=== PATIENT | female | born 1945 | race Caucasian/White ===

== ENCOUNTER 2020-02-14 15:18 | Inpatient (IN) | payer OTHER, MEDICAID, SELFPAY ==
[~2020-02-14] VITALS: Ht 152.4 cm; Wt 58.1 kg
[~2020-02-14 15:18] MED LIST: PHEN60TA43; VALS40TA3; [UNRECOGNIZED DRUG - CODE]
[2020-02-14 15:19] VITALS: BP 121/74
--- NOTE | 2020-02-14 15:19 | NUR ---
Pt biba and placed in bed 3.
[2020-02-14] MEDS ORDERED: CALC-1015 PO (15:39)
[2020-02-14] MEDS ORDERED: LOSA25TA32 PO (15:39)
[2020-02-14] MEDS ORDERED: [UNRECOGNIZED DRUG - CODE] PO (15:39)
[2020-02-14] MEDS ORDERED: LORA10TA19 PO (15:39)
[2020-02-14] MEDS ORDERED: ACET-2619 PO (15:39)
[2020-02-14] MEDS ORDERED: MOME0.051 NS (15:39)
[2020-02-14] MEDS ORDERED: MULT-2247 PO (15:39)
[2020-02-14] MEDS ORDERED: OMEP20EC11 PO (15:39)
[2020-02-14] MEDS ORDERED: LEVE750T25 PO (15:39)
[2020-02-14] MEDS ORDERED: ORE25 PO (15:39)
[2020-02-14] MEDS ORDERED: WHEA1POW PO (15:39)
[2020-02-14] MEDS ORDERED: PB97.2 PO (15:39)
--- NOTE | 2020-02-14 15:40 | NUR ---
74 YEAR OLD FEMALE BIBA FROM [facility] FOR ALTERED LOC. PER EMS PT IS MORE ALTERED THAN NORMAL BECAUSE SHE NORMALLY LOOKS AROUND AT PEOPLE BUT NOT ANYMORE. EMS DOES NOT KNOW LAST TIME SHE WAS NORMAL. PER EMS PT BASELINE NONVERBAL. GCS 7 ([id number]), AOX0 (NONVERBAL). PT BREATHING EVEN AND UNLABORED ON 3L NC, RR 18, SPO2 98%, SKIN WARM AND DRY. ERMD AT BEDSIDE. PT PLACED ON MONITOR, VS STABLE. PMH - SEIZURE, HTN ALLERGIES - NKA
[2020-02-14] MEDS ORDERED: IMO2 PO (15:42)
[2020-02-14] MEDS ORDERED: PROM6.2555 PO (15:42)
[2020-02-14] MEDS ORDERED: ALBU0.0912 IH (15:42)
[2020-02-14] MEDS ORDERED: ONDA4TAB PO (15:42)
[2020-02-14] MEDS ORDERED: MAGN400S60 PO (15:42)
[2020-02-14 15:59] LABS: BASOPHILS % (AUTO) 0.3 % (0.0-2.0); HEMOGLOBIN 14.2 g/dL (12.0-16.0); LYMPHOCYTES # (AUTO) 2.1 K/uL (2.5-16.5); LYMPHOCYTES % (AUTO) 18.8 % (20.5-51.1); MEAN CORPUSCULAR HEMOGLOBIN 32 pg (27-31); MEAN CORPUSCULAR HGB CONC 33 g/dL (33-37); MEAN CORPUSCULAR VOLUME 96.1 fL (80-94); MONOCYTES # (AUTO) 1.1 K/uL (0.8-1.0); NEUTROPHILS % (AUTO) 70.9 % (42.2-75.2); PLATELET COUNT (AUTO) 311 K/uL (140-450); RED BLOOD CELL COUNT(AUTO) 4.48 MIL/uL (4.20-5.40); RED CELL DISTRIBUTION WIDTH 13.3 % (11.6-13.7); WHITE BLOOD COUNT (AUTO) 11.2 K/uL (4.8-10.8)
--- NOTE | 2020-02-14 15:59 | NUR ---
PT TAKEN TO CT
--- NOTE | 2020-02-14 16:14 | NUR ---
PT RETURN FROM CT
[2020-02-14 16:20] LABS: ALBUMIN 3.1 g/dL (3.4-5.0); ANION GAP 11.2 (8-16); ASPARTATE AMINOTRANSFERASE 11 U/L (15-37); CARBON DIOXIDE 33.1 mmol/L (21-32); CHLORIDE 97 mmol/L (98-107); CREATININE 0.8 mg/dL (0.6-1.3); GLUCOSE 142 mg/dL (74-106); POTASSIUM 3.3 mmol/L (3.5-5.1); SODIUM SERUM 138 mmol/L (136-145); TOTAL BILIRUBIN 0.3 mg/dL (0.0-1.0); UREA NITROGEN, BLOOD 15 mg/dL (7-18)
[2020-02-14 16:37] LABS: BILIRUBIN,URINE NEGATIVE (NEGATIVE); BLOOD, URINE NEGATIVE (NEGATIVE); COLOR,URINE YELLOW (YELLOW); LEUKOCYTE ESTERASE ,URINE NEGATIVE (NEGATIVE); NITRITE, URINE NEGATIVE (NEGATIVE); PH,URINE 6.5 (5.0-9.0); UGLUCOSE NEGATIVE (NEGATIVE)
[2020-02-14] MEDS ORDERED: cefTRIAXone 1,000 MG VIAL ONE (16:39)
[2020-02-14 17:09] LABS: APPEARANCE,URINE CLEAR (CLEAR)
--- NOTE | 2020-02-14 17:40 | NUR ---
IV INFILTRATED, ATTEMPTING TO PLACE ANOTHER IV 2 TIMES. UNABLE TO ANOTHER RN WILL TRY
--- NOTE | 2020-02-14 17:41 | NUR ---
COVID, FLU, AND RSV SWAB SENT TO LAB. PT ALERT AND AWAKE, BREATHING EVEN AND UNLABORED.
[2020-02-14 17:45] LABS: C-REACTIVE PROTEIN QUANT 2.2 mg/dL (0.0-0.9)
[2020-02-14 17:57] LABS: LACTATE DEHYDROGENASE 137 U/L (81-234)
[2020-02-14 18:21] LABS: RSV NEGATIVE (NEGATIVE)
[2020-02-14 18:37] LABS: PROTHROMBIN TIME 9.8 secs (10.8-13.4)
--- NOTE | 2020-02-14 18:42 | NUR ---
GIVEN UPDATE TO MOLDED CANDLES WICKER JULIANN, STATES SHE DOES NOT KNOW CODE STATUS OF PT OR HAVE POLST, WILL GET BACK TO US AFTER TALKING TO BOSS.
[2020-02-14 19:30] VITALS: BP 101/60
--- NOTE | 2020-02-14 19:30 | NUR ---
ADMITTED 74, FEMALE, VIA GURNEY FROM E.R. TRANSFERRED SAFELY TO BED. NON VERBAL. NO SOB. IV SITE AT 22G. V/S TAKEN, MRSA SWAB DONE, DROPLET PRECAUTION IN PLACE. SEIZURE PRECAUTION IN PLACE. FALL RISK PROTOCOL IN PLACE. PLAN OF CARE DISCUSSED. CALL LIGHT WITHIN REACH.
--- NOTE | 2020-02-14 19:30 | NUR ---
Patient will be admitted to care of Dr Bueno. Admited to Tele. Will go to room 127A. Belongings list completed. Report to Ezequiel KEVIN.
--- NOTE | 2020-02-14 19:39 | NUR ---
REPORTED LACTIC ACID OF 2.[address] CUNHA. NO NEW ORDER.
--- NOTE | 2020-02-14 20:00 | NUR ---
PATIENT CARE DONE, KEPT CLEAN, DRY AND COMFORTABLE. Addendum: 02/15/20 at 0735 by Ezequiel Booker RN PATIENT REFUSED TO OPEN HER EYES WHEN I TRIED TO ASSESS AND TRIED TO FLUSH A PENLIGHT. TRIED 3X BUT PATIENT STILL DON'T OPEN EYES.
[2020-02-14] MEDS ORDERED: HYDROcodone/APAP 7.5/325 MG 1 TAB PO PRN (20:20)
[2020-02-14] MEDS ORDERED: ACETAMINOPHEN 325 MG TAB PO PRN (20:20)
[2020-02-14] MEDS ORDERED: ONDANSETRON 4 MG/2 ML VIAL IM/IVP PRN (20:20)
[2020-02-14] MEDS ORDERED: DOCUSATE SODIUM 100 MG GELCAP PO PRN (20:20)
[2020-02-14] MEDS ORDERED: ALBUTEROL HFA MDI 90 MCG/ACTUATION 8 GM INH PRN (20:25)
[2020-02-14 20:43] LABS: CHOL/HDL RATIO 2.8 (1-4.5); FREE T4 (FREE THYROXINE) 1.11 ng/dL (0.76-1.46); MAGNESIUM 1.7 mg/dL (1.8-2.4); PHOSPHORUS 3.7 mg/dL (2.5-4.9); THYROID STIMULATING HORMONE 0.42 uIU/mL (0.34-3.74)
--- NOTE | 2020-02-14 21:53 | NUR ---
HEPARIN 5000 UNITS SQ GIVEN ORDERED. TOLERATED WELL. NO A/R NOTED.
[2020-02-14] MEDS: NACL 0.9% 1,000 ML IV SCH (21:54)
--- NOTE | 2020-02-14 22:00 | NUR ---
OBTAINED SOME PATIENT INFO FROM NEEMA PASTRANA, FROM [facility].
[2020-02-14 22:11] LABS: BARBITURATE, URINE POSITIVE ng/ml (NEG <=200); BENZODIAZEPINE, URINE NEGATIVE ng/mL (NEG <=200); CANNABINOID, URINE NEGATIVE ng/mL (NEG <=50); COCAINE, URINE NEGATIVE ng/mL (NEG <=300); OPIATE, URINE NEGATIVE ng/mL (NEG <=2000); PHENCYCLIDINE SCREEN,URINE NEGATIVE ng/mL (NEG <=25)
[2020-02-15] VITALS: BP 91/50
--- NOTE | 2020-02-15 | NUR ---
V/S TAKEN AND RECORDED.
--- NOTE | 2020-02-15 02:00 | NUR ---
PATIENT IS SLEEPING. RESPIRATION EVEN AND UNLABORED. CON'T ON 2L NC O2, SATURATION WNL.
[2020-02-15 04:00] VITALS: BP 95/49
--- NOTE | 2020-02-15 04:15 | NUR ---
CHECKED PATIENT, V/S TAKEN, REPOSITIONED, KEPT WARM AND COMFORTABLE.
[2020-02-15 06:11] LABS: BASOPHILS % (AUTO) 0.3 % (0.0-2.0); EOSINOPHILS # (AUTO) 0.1 K/uL (0-0.4); EOSINOPHILS % (AUTO) 0.9 % (0.0-4.0); HEMATOCRIT 36.4 % (36-48); HEMOGLOBIN 12.2 g/dL (12.0-16.0); LYMPHOCYTES # (AUTO) 3.2 K/uL (2.5-16.5); LYMPHOCYTES % (AUTO) 34.6 % (20.5-51.1); MEAN CORPUSCULAR HEMOGLOBIN 33 pg (27-31); MEAN CORPUSCULAR HGB CONC 34 g/dL (33-37); MONOCYTES % (AUTO) 10.5 % (1.7-9.3); NEUTROPHILS % (AUTO) 53.7 % (42.2-75.2); PLATELET COUNT (AUTO) 260 K/uL (140-450); RED BLOOD CELL COUNT(AUTO) 3.75 MIL/uL (4.20-5.40); RED CELL DISTRIBUTION WIDTH 13.4 % (11.6-13.7); WHITE BLOOD COUNT (AUTO) 9.2 K/uL (4.8-10.8)
[2020-02-15] MEDS: NACL 0.9% 1,000 ML IV SCH ×2 (06:17→09:57)
--- NOTE | 2020-02-15 06:20 | NUR ---
CHECKED PATIENT, AROUSABLE TO VERBAL, ELEVATED HOB. OFFERED A WATER TO DRINK BUT PATIENT DON'T WANT TO OPEN HER MOUTH.
--- NOTE | 2020-02-15 07:08 | NUR ---
PATIENT IS IN STABLE CONDITION. NO SOB. ENDORSED TO DORITA LAL FOR CONTINUITY OF CARE.
--- NOTE | 2020-02-15 07:09 | NUR ---
RECEIVED REPORT FROM SCHOOL CLERK NURSE. PATIENT LYING DOWN IN BED SLEEPING, AROUSABLE BY VOICE. NO DISTRESS NOTED. FLACC 0. RESPIRATIONS EVEN, UNLABORED, ON O2 2L/MIN VIA NC. SKIN COLOR APPROPRIATE TO ETHNICITY, WARM TO TOUCH. SKIN INTACT. IV SITE INTACT, PATENT, AND INFUSING IVF PER MD ORDERS. REVIEWED PLAN OF CARE WITH PATIENT. UNABLE TO COMPREHEND D/T INTELLECTUAL DISABILITY. SAFETY MEASURES IN PLACE, CALL LIGHT WITHIN REACH. WILL CONTINUE TO MONITOR.
[2020-02-15 07:12] LABS: CARBON DIOXIDE 31.9 mmol/L (21-32); CHLORIDE 100 mmol/L (98-107); CREATININE 0.7 mg/dL (0.6-1.3); GLUCOSE 110 mg/dL (74-106); SODIUM SERUM 136 mmol/L (136-145); UREA NITROGEN, BLOOD 16 mg/dL (7-18)
[2020-02-15 07:50] LABS: ANION GAP 7.1 (8-16)
[2020-02-15 08:00] VITALS: BP 118/68
[2020-02-15] MEDS ORDERED: POTASSIUM CHLORIDE 40 MEQ, LIDOCAINE MPF 1% 25 MG in NACL 0.9% 250 ML IV SCH (08:30)
[2020-02-15] MEDS ORDERED: DEXAMETHASONE 4 MG TAB PO SCH (09:00)
--- NOTE | 2020-02-15 09:03 | NUR ---
PATIENT HAS BEEN SCREENED AND CATEGORIZED MODERATE NUTRITION RISK. PATIENT WILL BE SEEN WITHIN 3-5 DAYS OF ADMISSION. 02/17/20 02/19/[address]
[2020-02-15] MEDS: ASCORBIC ACID 500 MG TAB PO SCH (09:55)
[2020-02-15] MEDS: ZINC SULF 220 MG CAP PO SCH (09:55)
[2020-02-15] MEDS: AZITHROMYCIN 250 MG TAB PO SCH (09:55)
--- NOTE | 2020-02-15 10:13 | NUR ---
SCHEDULED MEDICATIONS DUE GIVEN. WILL CONTINUE TO MONITOR.
--- NOTE | 2020-02-15 10:39 | NUR ---
ASSOCIATE ACCOUNTANT NOTE: Patient's Orientation Unable To Assess Information Provided By NEEMA PASTRANA - [facility] [place] Comments SW WAS UNABLE TO MEET PATIENT AT BEDSIDE. SW CONTACTED PATIENT'S EMERGENCY CONTACT NEEMA PASTRANA. Skein Yarn Dyer, Realtionship and Phone Number NEEMA PASTRANA [facility] [place] [phone] HARSHA REESE SISTER [phone] Healthcare Power of Health Psychologist No Does Patient Have a POLST No Identifying Problems No Social Work Triggers Explanation Of Identifying Problems PATIENT IS A 74-YEAR-OLD FEMALE ADMITTED FOR COVID R/O, PNA, AND SEPSIS. PATIENT HAS PMHX OF SEIZURE DISORDER AND HYPERTENSION. PATIENT'S [facility] STATION OPERATOR IS TIFF MARTINES [phone]. PATIENT IS NOT CONSERVED BUT PATEINT'S SISTER IS INVOLVED IN HER CARE, HARSHA REESE [phone]. PATIENT WAS ADMITTED FROM [facility]. Admitted From Residential Care Pre-Admission Level Of Functioning Status Total Care Prior DME Wheelchair Living Situation Asst'd Living/Board &Care Other Living Situation/Comment [facility] Patient Had Caregiver No Home Support No Caregiver Issues Financial Issues No Known Financial Issue Referral To The Financial Counselor Needed No Factors/Needs No D/C Needs Identified Explanation And Or Other Factors Affecting/Possible DC Needs FACILITY WILL NEED 1 NEGATIVE COVID TEST PRIOR TO DISCHARGE. Pt/Rep Participated In Discharge Plan Yes Patient/Family Agress With Discharge Plan Yes Discharge Plan Comments TENTATIVE DISCHARGE PLAN IS FOR PATIENT TO RETURN TO [facility]. DC Plan Status Initiated
[2020-02-15 12:00] VITALS: BP 110/70
[2020-02-15] MEDS ORDERED: MAG SULF 2000 MG/WATER PREMIX 50 ML IV SCH (13:00)
--- NOTE | 2020-02-15 13:41 | NUR ---
ASSISTED POST PRODUCTION ASSISTANT IN CLEANING AND REPOSITIONING PATIENT. SCHEDULED MEDICATIONS DUE GIVEN. WILL CONTINUE TO MONITOR.
--- NOTE | 2020-02-15 14:00 | NUR ---
PATIENT PULLED OUT IV LINE. NEW IV LINE INSERTED ON FIRST ATTEMPT. PATIENT TOLERATED PROCEDURE WELL. WILL CONTINUE TO MONITOR.
[2020-02-15 16:00] VITALS: BP 134/81
--- NOTE | 2020-02-15 17:40 | NUR ---
PATIENT SITTING IN BED, NO DISTRESS NOTED. CONDITION UNCHANGED. WILL CONTINUE TO MONITOR.
--- NOTE | 2020-02-15 19:04 | NUR ---
GAVE REPORT TO LINING STITCHER NURSE FOR CONTINUITY OF CARE. PATIENT IN STABLE CONDITION.
--- NOTE | 2020-02-15 19:05 | NUR ---
RECEIVED BEDSIDE ENDORSEMENT FROM DORITA LAL. PATIENT IS LYING IN BED, NO SOB. NOT IN DISTRESS, ON ROOM AIR WITH SATURATION OF 93%. IV SITE AT LFA 24G, INTACT AND PATENT INFUSING NS 100 CC/HR. STILL PENDING COVID TEST RESULT. DROPLET PRECAUTION OBSERVED. FALL RISK PROTOCOL OBSERVED, SEIZURE PROTECTION IN PLACE. PLAN OF CARE DISCUSSED. CALL LIGHT WITHIN REACH.
[2020-02-15 20:00] VITALS: BP 135/72
--- NOTE | 2020-02-15 20:44 | NUR ---
PATIENT IS AWAKE. ADMINISTERED HEPARIN 5000 UNITS SQ TO ABDOMINAL AREA, TOLERATED WELL. KEPT COMFORTABLE.
--- NOTE | 2020-02-15 22:12 | NUR ---
CLEANED PATIENT'S [place] AREA, BM NOTED, SOFT. MARYLOU BROWNING HELPED ME CLEANED AND REPOSITIONED PATIENT. NO SOB. CALL LIGHT WITHIN REACH. FALL RISK PROTOCOL IN PLACE.
[2020-02-16] VITALS: BP 136/72
--- NOTE | 2020-02-16 | NUR ---
V/S TAKEN. NO SOB.
--- NOTE | 2020-02-16 02:00 | NUR ---
PATIENT IS SLEEPING, RESPIRATION EVEN AND UNLABORED.
[2020-02-16] MEDS: NACL 0.9% 1,000 ML IV SCH ×3 (02:17→22:17)
--- NOTE | 2020-02-16 03:06 | NUR ---
HANGED A NEW BAG OF NS 1L AT 100 CC/HR. IV SITE INTACT AND PATENT.
[2020-02-16 04:00] VITALS: BP 139/72
--- NOTE | 2020-02-16 05:00 | NUR ---
PATIENT IS SLEEPING. NO SOB.
[2020-02-16 06:26] LABS: BASOPHILS % (AUTO) 0.5 % (0.0-2.0); EOSINOPHILS % (AUTO) 0.3 % (0.0-4.0); HEMATOCRIT 36.8 % (36-48); HEMOGLOBIN 12.4 g/dL (12.0-16.0); LYMPHOCYTES # (AUTO) 1.8 K/uL (2.5-16.5); LYMPHOCYTES % (AUTO) 24.3 % (20.5-51.1); MEAN CORPUSCULAR HEMOGLOBIN 33 pg (27-31); MEAN CORPUSCULAR HGB CONC 34 g/dL (33-37); MEAN CORPUSCULAR VOLUME 96.8 fL (80-94); MONOCYTES # (AUTO) 0.6 K/uL (0.8-1.0); MONOCYTES % (AUTO) 8.1 % (1.7-9.3); NEUTROPHILS # (AUTO) 4.9 K/uL (1.8-7.7); NEUTROPHILS % (AUTO) 66.8 % (42.2-75.2); PLATELET COUNT (AUTO) 271 K/uL (140-450); RED CELL DISTRIBUTION WIDTH 13.2 % (11.6-13.7); WHITE BLOOD COUNT (AUTO) 7.4 K/uL (4.8-10.8)
[2020-02-16 06:30] LABS: ANION GAP 11.7 (8-16); CARBON DIOXIDE 28.7 mmol/L (21-32); CHLORIDE 103 mmol/L (98-107); CREATININE 0.6 mg/dL (0.6-1.3); GLUCOSE 126 mg/dL (74-106); POTASSIUM 3.4 mmol/L (3.5-5.1); SODIUM SERUM 140 mmol/L (136-145); UREA NITROGEN, BLOOD 12 mg/dL (7-18)
--- NOTE | 2020-02-16 07:13 | NUR ---
PATIENT IS IN STABLE CONDITION. BEDSIDE ENDORSEMENT GIVEN TO DORITA MICHELLE FOR CONTINUITY OF CARE.
--- NOTE | 2020-02-16 07:14 | NUR ---
REPORT GIVEN BY NIGHT NURSE. PATIENT AWAKE, NON VERBAL. NO S/S OF DISTRESS NOTED. LEFT FOREARM INTACTA ND PATENT. BED IN LOW POSITION. BED ALARM ON. SAFETY MEASURES IN PLACE. PLANS OF CARE DISCUSSED. PATIENT ON ROOM AIR. CALL LIGHT WITHIN REACH.
[2020-02-16 08:00] VITALS: BP 139/68
[2020-02-16] MEDS: POTASSIUM CHLORIDE 10 MEQ TABER PO PRN (08:20)
[2020-02-16] MEDS: ASCORBIC ACID 500 MG TAB PO SCH (08:21)
[2020-02-16] MEDS: ZINC SULF 220 MG CAP PO SCH (08:21)
[2020-02-16] MEDS: AZITHROMYCIN 250 MG TAB PO SCH (08:22)
--- NOTE | 2020-02-16 09:00 | NUR ---
PATIENT IS AWAKE, NONVERBAL. RESPIRATIONS EVEN AND UNLABORED. PATIENT ON ROOM AIR, O2 SAT 94%. PATIENT REFUSED BREAKFAST.
[2020-02-16] MEDS ORDERED: MAG SULF 2000 MG/WATER PREMIX 50 ML IV SCH (09:30)
[2020-02-16 12:00] VITALS: BP 138/81
--- NOTE | 2020-02-16 13:00 | NUR ---
ENCOURAGED PATIENT TO EAT LUNCH. PATIENT REFUSED.
--- NOTE | 2020-02-16 13:03 | NUR ---
DC PL[age] YRS OLD FEMALE PATIENT WAS ADMITTED FROM [facility] WITH A DX OF R/O COVID, PNA SEPSIS AND HYPOXIA. PT HAS A HX OF SEIZURE AND HTN NON-VERBAL AT BASELINE. CXR SHOWED PNEUMONIA, CT HEAD NO ACUTE CHANGES. COVID TEST PENDING . STARTED ON COVID PROTOCOL , IVF AND IV ABX WITH ROCEPHIN . CONSULTED WITH DELANO DC PLAN TO GO BACK TO [facility]. CM TO FOLLOW Addendum: 02/19/20 at 1330 by Rashida Burnette DC PLANNING COVID TEST NEGATIVE , COMPLETED THE COURSE OF ANTIBIOTICS STABLE FOR DISCHARGE. CALLED THE FACILITY AND [facility] [phone] PER TIFF SHE HAS TO SEND THE NURSE TO THE [facility] HOME TO [place] FOR THE QUARANTINE AND WILL CALL BACK CM TO FOLLOW Addendum: 02/19/20 at 1612 by Pal Suarez NELSON CONTACTED [facility] [phone] WHO STATED THAT HER NURSE IS STILL REVIEWING CLINICALS. NELSON PROVIDED NURSING STATION'S PHONE NUMBER [phone] TO [facility]. Addendum: 02/19/20 at 1622 by Rashida Burnette CM DC PLANNING: RECEIVED A CALL FROM [facility] STATED THEY REVIEWED THE CLINICALS AND ACCEPTED PATIENT, WILL SEND THE TRANSPORTER TO [employer] PATIENT. NOTIFIED PRINCESS KEVIN . Addendum: 02/19/20 at 1657 by Sharon Graham CM RECEIVED A CALL FROM [facility] [phone] SHE REQUESTED TO BE E-MAILED LAST THREE DAYS OF NURSES NOTES AT NIGHT TIME. E-MAILED TO [email or web address] FOLLOWE UP SHE RECEIVED THEM AND WILL FOLLOW UP WITH THE FLOOR
[2020-02-16 15:07] LABS: T4 (THYROXINE) 6.8 ug/dL (4.5-12.0)
[2020-02-16 16:00] VITALS: BP 121/76
--- NOTE | 2020-02-16 16:00 | NUR ---
PT REMAINS STABLE. PATIENT AWAKE, NONVERBAL. NO DISTRESS NOTED. FALL PREVENTION MEASURES IN PLACE.
--- NOTE | 2020-02-16 19:05 | NUR ---
REPORT GIVEN TO NIGHT NURSE FOR CONTINUITY OF CARE. PT IN STABLE CONDITION.
--- NOTE | 2020-02-16 19:08 | NUR ---
RECEIVED PATIENT IN STABLE CONDITION FROM AM SHIFT NURSE FOR CONTINUITY OF CARE. TELE PATIENT. RESPIRATIONS EVEN, UNLABORED. SKIN WARM, DRY. IV SITE NOTED TO LEFT FOREARM 24G PATENT/INTACT, INFUSING FLUIDS WELL. FLACC 0. NO S/S ACUTE DISTRESS. CALL LIGHT WITHIN REACH. SAFETY PRECAUTIONS IN PLACE. ISOLATION PRECAUTIONS OBSERVED BY ALL STAFF.
[2020-02-16 20:00] VITALS: BP 150/73
--- NOTE | 2020-02-16 21:40 | NUR ---
PATIENT AWAKE AND IN STABLE CONDITION. DUE MEDS GIVEN. NO S/S ACUTE DISTRESS. FLACC 0. CALL LIGHT WITHIN REACH.
--- NOTE | 2020-02-16 23:00 | NUR ---
PATIENT IS AWAKE AND IN STABLE CONDITION. FLACC 0. NO S/S ACUTE DISTRESS. CALL LIGHT WITHIN REACH. SAFETY PRECAUTIONS IN PLACE. ISOLATION PRECAUTIONS OBSERVED BY ALL STAFF.
[2020-02-17] VITALS: BP 111/65
--- NOTE | 2020-02-17 01:24 | NUR ---
MADE ROUNDS. PATIENT IS ASLEEP AND IN STABLE CONDITION. NO S/S ACUTE DISTRESS. CALL LIGHT WITHIN REACH. SAFETY PRECAUTIONS IN PLACE. ISOLATION PRECAUTIONS OBSERVED BY ALL STAFF.
--- NOTE | 2020-02-17 03:00 | NUR ---
PATIENT CONTINUES IN STABLE CONDITION. FLACC 0. NO S/S ACUTE DISTRESS. CALL LIGHT WITHIN REACH. SAFETY PRECAUTIONS IN PLACE. ISOLATION PRECAUTIONS OBSERVED BY ALL STAFF.
[2020-02-17 04:00] VITALS: BP 146/75
--- NOTE | 2020-02-17 05:39 | NUR ---
INCONTINENT CARE RENDERED WITH IC DESIGN ENGINEER AT BEDSIDE. FLACC 0. NO S/S ACUTE DISTRESS. CALL LIGHT WITHIN REACH. SAFETY PRECAUTIONS IN PLACE. ISOLATION PRECAUTIONS OBSERVED BY ALL STAFF.
[2020-02-17 06:15] LABS: BASOPHILS % (AUTO) 0.3 % (0.0-2.0); HEMATOCRIT 37.7 % (36-48); HEMOGLOBIN 12.7 g/dL (12.0-16.0); LYMPHOCYTES # (AUTO) 1.4 K/uL (2.5-16.5); LYMPHOCYTES % (AUTO) 13.1 % (20.5-51.1); MEAN CORPUSCULAR HEMOGLOBIN 32 pg (27-31); MEAN CORPUSCULAR HGB CONC 34 g/dL (33-37); MEAN CORPUSCULAR VOLUME 95.2 fL (80-94); MONOCYTES # (AUTO) 0.9 K/uL (0.8-1.0); NEUTROPHILS # (AUTO) 8.7 K/uL (1.8-7.7); NEUTROPHILS % (AUTO) 78.6 % (42.2-75.2); PLATELET COUNT (AUTO) 321 K/uL (140-450); RED BLOOD CELL COUNT(AUTO) 3.96 MIL/uL (4.20-5.40); RED CELL DISTRIBUTION WIDTH 13.6 % (11.6-13.7)
[2020-02-17 07:02] LABS: ANION GAP 14.5 (8-16); CARBON DIOXIDE 26.7 mmol/L (21-32); CHLORIDE 100 mmol/L (98-107); CREATININE 0.6 mg/dL (0.6-1.3); GLUCOSE 141 mg/dL (74-106); POTASSIUM 3.2 mmol/L (3.5-5.1); SODIUM SERUM 138 mmol/L (136-145); UREA NITROGEN, BLOOD 7 mg/dL (7-18)
--- NOTE | 2020-02-17 07:24 | NUR ---
REPORT GIVEN BY NIGHT NURSE. PATIENT AWAKE, NON VERBAL. NO ACUTE DISTRESS NOTED. PT A/OX1. SINUS RHYTHM. DIMINISHED LUNG SOUNDS, ON 2L NC WITH SA02 OF 96%. PT HAS 24G IV IN L FOREARM WITH NS @ 100ML/HR. SKIN INTACT. BED IN LOW POSITION. BED ALARM ON. SAFETY MEASURES IN PLACE. PLANS OF CARE DISCUSSED. CALL LIGHT WITHIN REACH.
[2020-02-17] MEDS: AZITHROMYCIN 250 MG TAB PO SCH (08:55)
[2020-02-17] MEDS: ASCORBIC ACID 500 MG TAB PO SCH (08:55)
[2020-02-17] MEDS: ZINC SULF 220 MG CAP PO SCH (08:55)
--- NOTE | 2020-02-17 08:56 | NUR ---
GIVEN MORNING MEDICATIONS PO, CRUSHED AND MIXED WITH APPLESAUCE. PATIENT TOLERATED WELL. NO SIGNS OF DISTRESS NOTED. BED IN LOW POSITION. CALL LIGHT IS WITHIN REACH. WILL CONTINUE TO MONITOR.
--- NOTE | 2020-02-17 09:10 | NUR ---
FED PATIENT BREAKFAST. WAS ABLE TO EAT PUREE EGG, THICKENED MILK, AND THICKENED APPLEJUICE. PATIENT TOLERATED WELL.
[2020-02-17 09:44] VITALS: BP 121/67
[2020-02-17] MEDS: NACL 0.9% 1,000 ML IV SCH ×2 (09:51→18:17)
[2020-02-17] MEDS ORDERED: KCL 20 MEQ/WATER INJ PREMIX 200 ML IV SCH (10:00)
--- NOTE | 2020-02-17 10:06 | NUR ---
TERESO K-RIDER FOR POTASSIUM LEVEL OF 3.2. PATIENT IS LAYING IN BED. NO SIGNS OF DISTRESS NOTED. BED IN LOW POSITION. CALL LIGHT IS WITHIN REACH. WILL CONTINUE TO MONITOR.
[2020-02-17 12:00] VITALS: BP 134/77
--- NOTE | 2020-02-17 12:20 | NUR ---
VITAL SIGNS CHECKED. K-RIDER STILL RUNNING. HAND SOLE SEWER AT BEDSIDE CLEANING AND REPOSITIONING PATIENT. PATIENT VOIDED X1.
--- NOTE | 2020-02-17 13:13 | NUR ---
TRIED TO FEED LUNCH. PATIENT REFUSED, KEPT MOVING HEAD AWAY FROM THE SPOON. WILL TRY AGAIN LATER
--- NOTE | 2020-02-17 14:10 | NUR ---
PATIENT IS STILL REFUSING LUNCH. WILL TRY AGAIN LATER
--- NOTE | 2020-02-17 15:21 | NUR ---
PATIENT ASLEEP. NO SIGNS OF DISTRESS NOTED. BED IN LOW POSITION. CALL LIGHT IS WITHIN REACH. WILL CONTINUE TO MONITOR. Addendum: 02/17/20 at 1522 by Princess Nava Zacarias RN DROPLET PRECAUTION OBSERVED BY ALL STAFF.
[2020-02-17 16:00] VITALS: BP 140/76
--- NOTE | 2020-02-17 16:44 | NUR ---
HUNG ROCEPHIN VIA IVPB. GIVEN MEDICATION EDUCATION. PATIENT IS LAYING IN BED. ON 2L O2 VIA NC, 02SAT 97%, HR 81. BED IN LOW POSITION. CALL LIGHT IS WITHIN REACH. WILL CONTINUE TO MONITOR
--- NOTE | 2020-02-17 19:12 | NUR ---
RECEIVED PATIENT IN STABLE CONDITION FROM AM SHIFT NURSE FOR CONTINUITY OF CARE. TELE PATIENT. RESPIRATIONS EVEN, UNLABORED. CONTINUES ON O2 2L VIA NC. O2SAT 97%. SKIN WARM, DRY. IV SITE NOTED TO LEFT FOREARM 24G PATENT/INTACT, INFUSING FLUIDS WELL. FLACC 0. NO S/S ACUTE DISTRESS. CALL LIGHT WITHIN REACH. SAFETY PRECAUTIONS IN PLACE. ISOLATION PRECAUTIONS OBSERVED BY ALL STAFF.
--- NOTE | 2020-02-17 19:12 | NUR ---
ENDORSED TO STRAWHAT SIZER RN FOR CONTINUITY OF CARE. PT IS IN STABLE CONDITION.
[2020-02-17 20:00] VITALS: BP 142/80
--- NOTE | 2020-02-17 21:00 | NUR ---
MADE ROUNDS. PATIENT IS AWAKE. FLACC 0. NO S/S ACUTE DISTRESS. CALL LIGHT WITHIN REACH. SAFETY PRECAUTIONS IN PLACE. ISOLATION PRECAUTIONS OBSERVED BY ALL STAFF.
--- NOTE | 2020-02-17 23:24 | NUR ---
PATIENT IS RESTING COMFORTABLY IN BED. FLACC 0. NO S/S ACUTE DISTRESS. CALL LIGHT WITHIN REACH. SAFETY PRECAUTIONS IN PLACE. ISOLATION PRECAUTIONS OBSERVED BY ALL STAFF.
[2020-02-18] VITALS: BP 121/68
--- NOTE | 2020-02-18 01:00 | NUR ---
PATIENT AWAKE AND IN STABLE CONDITION. FLACC 0. NO S/S ACUTE DISTRESS. CALL LIGHT WITHIN REACH. SAFETY PRECAUTIONS IN PLACE. ISOLATION PRECAUTIONS OBSERVED BY ALL STAFF.
--- NOTE | 2020-02-18 02:37 | NUR ---
INCONTINENT CARE RENDERED WITH INSIDE SALES ACCOUNT MANAGER AT BEDSIDE. FLACC 0. NO S/S ACUTE DISTRESS. CALL LIGHT WITHIN REACH. SAFETY PRECAUTIONS IN PLACE. ISOLATION PRECAUTIONS OBSERVED BY ALL STAFF.
--- NOTE | 2020-02-18 03:00 | NUR ---
PATIENT IS SLEEPING. NO S/S ACUTE DISTRESS. CALL LIGHT WITHIN REACH. SAFETY PRECAUTIONS IN PLACE. ISOLATION PRECAUTIONS OBSERVED BY ALL STAFF.
[2020-02-18 04:00] VITALS: BP 115/66
[2020-02-18] MEDS: NACL 0.9% 1,000 ML IV SCH ×2 (04:17→16:00)
--- NOTE | 2020-02-18 05:33 | NUR ---
PATIENT RESTING COMFORTABLY IN BED. FLACC 0. NO S/S ACUTE DISTRESS. CALL LIGHT WITHIN REACH. SAFETY PRECAUTIONS IN PLACE. ISOLATION PRECAUTIONS OBSERVED BY ALL STAFF.
[2020-02-18 06:18] LABS: BASOPHILS # (AUTO) 0.1 K/uL (0.00-0.22); BASOPHILS % (AUTO) 0.5 % (0.0-2.0); EOSINOPHILS # (AUTO) 0.1 K/uL (0-0.4); EOSINOPHILS % (AUTO) 0.6 % (0.0-4.0); HEMATOCRIT 34.8 % (36-48); HEMOGLOBIN 11.8 g/dL (12.0-16.0); LYMPHOCYTES % (AUTO) 20.4 % (20.5-51.1); MEAN CORPUSCULAR HEMOGLOBIN 33 pg (27-31); MEAN CORPUSCULAR HGB CONC 34 g/dL (33-37); MEAN CORPUSCULAR VOLUME 96.6 fL (80-94); MONOCYTES # (AUTO) 0.9 K/uL (0.8-1.0); NEUTROPHILS # (AUTO) 6.8 K/uL (1.8-7.7); NEUTROPHILS % (AUTO) 69.5 % (42.2-75.2); PLATELET COUNT (AUTO) 312 K/uL (140-450); RED CELL DISTRIBUTION WIDTH 13.8 % (11.6-13.7); WHITE BLOOD COUNT (AUTO) 9.7 K/uL (4.8-10.8)
[2020-02-18 06:56] LABS: ANION GAP 14.4 (8-16); CARBON DIOXIDE 26.5 mmol/L (21-32); CHLORIDE 102 mmol/L (98-107); CREATININE 0.7 mg/dL (0.6-1.3); GLUCOSE 128 mg/dL (74-106); SODIUM SERUM 140 mmol/L (136-145); UREA NITROGEN, BLOOD 11 mg/dL (7-18)
--- NOTE | 2020-02-18 07:10 | NUR ---
BEDSIDE REPORT RECEIVED FROM FAMILY DINNER SERVICE SPECIALIST NURSE REGARDING PATIENT CONDITION AND PLAN OF CARE. PATIENT AWAKE, ALERT AND ORIENTED ONLY TO SELF, NON VERBAL. CURRENTLY ON 2L NASAL CANNULA, SATURATION 100% HR 73. DOES NOT APPEAR TO BE IN ANY PAIN AT THIS TIME. IVF NS RUNNING AT 100 ML/HR. CAP REFILL < 3 SECONDS, NO CYANOSIS, PALLOR, OR EDEMA NOTED. LUNG SOUNDS DIMINISHED, SKIN INTACT. ALL NEEDS MET, CALL LIGHT WITHIN REACH, WILL CONTINUE TO MONITOR. DROPLET PRECAUTIONS FOLLOWED.
[2020-02-18 08:00] VITALS: BP 116/66
[2020-02-18 09:38] LABS: POTASSIUM 2.9 mmol/L (3.5-5.1)
[2020-02-18] MEDS: POTASSIUM CHLORIDE 10 MEQ TABER PO PRN (09:45)
[2020-02-18] MEDS: ZINC SULF 220 MG CAP PO SCH (09:50)
[2020-02-18] MEDS: AZITHROMYCIN 250 MG TAB PO SCH (09:50)
[2020-02-18] MEDS: ASCORBIC ACID 500 MG TAB PO SCH (09:50)
--- NOTE | 2020-02-18 09:50 | NUR ---
MEDICATIONS CRUSHED AND GIVEN TO PATIENT IN APPLESAUCE, TOLERATED WELL. PATIENT POTASSIUM LEVEL 2.9 , CARRIED OUT MD ORDER FOR 40MEQ TABLET AND LIQUIDS GIVEN. TOLERATED. WELL. PATIENT STABILIZED, O2 SATURATION 100% ON 2L VIA NASAL CANNULA. DOES NOT APPEAR TO BE IN ANY PAIN AT THE MOMENT. ALL NEEDS MET, CALL LIGHT WITHIN REACH, WILL CONTINUE TO MONITOR.
[2020-02-18] MEDS ORDERED: POTASSIUM CHLORIDE 20% 40 MEQ/15 ML UDC PO SCH (10:00)
--- NOTE | 2020-02-18 10:30 | NUR ---
PATIENT CHANGED AND REPOSITIONED, PER MARINE CARGO SURVEYOR PATIENT HAD ONE SMALL AMOUNT OF SOFT STOOL. NOTED
[2020-02-18] MEDS ORDERED: MAGNESIUM HYDROXIDE 2400 MG/30 ML UDC PO PRN (11:45)
[2020-02-18 12:00] VITALS: BP 130/77
--- NOTE | 2020-02-18 12:30 | NUR ---
PATIENT RESTING IN BED IN NO S/S RESPIRATORY DISTRESS, DOES NOT APPEAR TO BE IN ANY PAIN. ALL NEEDS MET, CALL LIGHT WITHIN REACH, WILL CONTINUE TO MONITOR.
[2020-02-18] MEDS ORDERED: POTASSIUM CHLORIDE 40 MEQ, LIDOCAINE MPF 1% 25 MG in NACL 0.9% 250 ML IV SCH (13:00)
--- NOTE | 2020-02-18 13:30 | NUR ---
KCL FLUID HUNG AND GIVEN TO PATIENT, TOLERATED WELL, DOES NOT APPEAR TO BE IN ANY PAIN AT THIS TIME. PATIENT ON 2L VIA NC SATURATION 100%. ALL NEEDS MET, CALL LIGHT WITHIN REACH, WILL CONTINUE TO MONITOR.
--- NOTE | 2020-02-18 15:00 | NUR ---
ROUNDED ON PATIENT, PATIENT RESTING IN BED IN NO S/S RESPIRATORY DISTRESS, DOES NOT APPEAR TO BE IN ANY PAIN. ON 2L VIA NC SATURATION 98%. ALL NEEDS MET, CALL LIGHT WITHIN REACH, WILL CONTINUE TO MONITOR.
[2020-02-18 16:00] VITALS: BP 125/88
--- NOTE | 2020-02-18 16:00 | NUR ---
HUNG NEW NS BAG, PATIENT TOLERATED WELL. PLACED PATIENT ON ROOM AIR, PATIENT SATURATION REMAINS 97%. PATIENT RESTING IN BED IN NO S/S RESPIRATORY DISTRESS, DOES NOT APPEAR TO BE IN ANY PAIN. ALL NEEDS MET, CALL LIGHT WITHIN REACH, WILL CONTINUE TO MONITOR.
--- NOTE | 2020-02-18 18:00 | NUR ---
ROUNDED ON PATIENT, PATIENT RESTING IN BED IN NO S/S RESPIRATORY DISTRESS, ON ROOM AIR, SATURATION 95%. DOES NOT APPEAR TO BE IN ANY PAIN. FED PATIENT FOR DINNER, PATIENT ATE ONLY 10%. ALL NEEDS MET, CALL LIGHT WITHIN REACH, WILL CONTINUE TO MONITOR.
--- NOTE | 2020-02-18 19:29 | NUR ---
BEDSIDE REPORT GIVEN TO CALL CENTER OPERATOR NURSE, MADE AWARE OF PATIENT CONDITION AND PLAN OF CARE. PATIENT IS STABILIZED.
--- NOTE | 2020-02-18 19:29 | NUR ---
RECEIVED PT AAOX1 , NID - O2 SAT WNL - RA , IV SITE INTACT AND PATENT , BEDBOUND , LOW GUERA SCALE , SAFETY MEASURES IN PLACE - BED ALARM ON , PLAN OF CARE DISCUSSED BUT POOR UNDERSTANDING DUE TO MENTAL STATUS . WILL CONT. TO MONITOR.
[2020-02-18 20:00] VITALS: BP 122/69
[2020-02-18] MEDS: LOSARTAN 25 MG TAB PO SCH (20:49)
[2020-02-18] MEDS: levETIRAcetam 100 MG/ML ORASYR PO SCH (20:49)
[2020-02-18] MEDS ORDERED: LORATADINE 10 MG TAB PO SCH (21:00)
[2020-02-18] MEDS ORDERED: NON-FORMULARY ITEM (Levetiracetam* (Keppra Xr*) 750 MG) PO SCH (21:00)
[2020-02-18] MEDS ORDERED: WHEAT DEXTRIN PO SCH (21:00)
[2020-02-18] MEDS ORDERED: NON-FORMULARY ITEM (Omeprazole* (Prilosec*) 20 MG) PO SCH (21:00)
[2020-02-19] VITALS: BP 121/76
--- NOTE | 2020-02-19 | NUR ---
MADE ROUNDS , NO S/SX OF ACUTE DISTRESS NOTED - WILL CONT. TO MONITOR .
--- NOTE | 2020-02-19 02:00 | NUR ---
SLEEPING - CHEST RISE AND FALL EQUALLY . WILL CONT. TO MONITOR
[2020-02-19 04:00] VITALS: BP 122/65
--- NOTE | 2020-02-19 04:00 | NUR ---
O2 SAT WNL , FLACC O , RESTING ON BED COMFORTABLY . WILL CONT. TO MONITOR.
[2020-02-19] MEDS: NACL 0.9% 1,000 ML IV SCH ×2 (05:18→10:17)
--- NOTE | 2020-02-19 06:00 | NUR ---
MADE ROUNDS , NO S/SX OF ACUTE DISTRESS NOTED - WILL CONT. TO MONITOR.
--- NOTE | 2020-02-19 07:23 | NUR ---
RECEIVED PATIENT FROM HOMOEOPATH NURSE FOR CONTINUITY OF CARE. PATIENT IS ASLEEP. RESPIRATIONS EVEN AND UNLABORED, ON ROOM AIR. VISIBLE CHEST RISE AND FALL NOTED. ON MED-SURG. SKIN WARM, DRY, AND INTACT. IV IN THE L FOREARM G24 RUNNING NS AT 100 ML/HR. INCONTINENT. BEDBOUND. SAFETY MEASURES IN PLACE. STANDARD ISOLATION. BED IN LOW POSITION. CALL LIGHT IS WITHIN REACH. WILL CONTINUE TO MONITOR
--- NOTE | 2020-02-19 07:23 | NUR ---
ENDORSED TO AM SHIFT -PT- STABLE .
[2020-02-19 08:00] VITALS: BP 135/65
[2020-02-19 08:13] LABS: CARBON DIOXIDE 25.7 mmol/L (21-32); CHLORIDE 105 mmol/L (98-107); CREATININE 0.6 mg/dL (0.6-1.3); GLUCOSE 109 mg/dL (74-106); POTASSIUM 3.7 mmol/L (3.5-5.1); SODIUM SERUM 139 mmol/L (136-145); UREA NITROGEN, BLOOD 8 mg/dL (7-18)
[2020-02-19] MEDS ORDERED: VITAMIN D 400 IU TAB PO SCH (09:00)
[2020-02-19] MEDS ORDERED: hydroCHLOROthiazide 25 MG TAB PO SCH (09:00)
[2020-02-19] MEDS ORDERED: MULTIVITAMIN PO SCH (09:00)
[2020-02-19] MEDS ORDERED: [UNRECOGNIZED DRUG - OTHER] PO SCH (09:00)
[2020-02-19] MEDS ORDERED: MULTIVITAMIN/MINERALS 1 TAB PO SCH (09:00)
[2020-02-19] MEDS ORDERED: PANTOPRAZOLE 40 MG TABEC PO SCH (09:00)
[2020-02-19] MEDS ORDERED: FLUTICASONE NASAL 50 MCG/ACTUATION 16 GM BTL NS SCH (09:00)
[2020-02-19] MEDS ORDERED: MOMETASONE FUROATE 0.05 MG NS SCH (09:00)
[2020-02-19] MEDS: LOSARTAN 25 MG TAB PO SCH (09:08)
[2020-02-19] MEDS: ASCORBIC ACID 500 MG TAB PO SCH (09:08)
--- NOTE | 2020-02-19 09:08 | NUR ---
GIVEN MORNING MEDICATIONS PO, CRUSHED AND MIXED WITH APPLESAUCE. PATIENT TOLERATED WELL. WAS ABLE TO SWALLOW WITHOUT CHOKING. BED IN LOW POSITION. CALL LIGHT IS WITHIN REACH. WILL CONTINUE TO MONITOR
[2020-02-19] MEDS: AZITHROMYCIN 250 MG TAB PO SCH (09:09)
[2020-02-19] MEDS: levETIRAcetam 100 MG/ML ORASYR PO SCH (09:10)
[2020-02-19] MEDS: ZINC SULF 220 MG CAP PO SCH (09:10)
[2020-02-19 10:13] LABS: BASOPHILS % (AUTO) 0.4 % (0.0-2.0); EOSINOPHILS % (AUTO) 0.4 % (0.0-4.0); HEMATOCRIT 34.3 % (36-48); HEMOGLOBIN 11.6 g/dL (12.0-16.0); LYMPHOCYTES # (AUTO) 2.2 K/uL (2.5-16.5); LYMPHOCYTES % (AUTO) 28.6 % (20.5-51.1); MEAN CORPUSCULAR HEMOGLOBIN 33 pg (27-31); MEAN CORPUSCULAR HGB CONC 34 g/dL (33-37); MEAN CORPUSCULAR VOLUME 97.9 fL (80-94); MONOCYTES # (AUTO) 0.6 K/uL (0.8-1.0); MONOCYTES % (AUTO) 8.1 % (1.7-9.3); NEUTROPHILS # (AUTO) 4.8 K/uL (1.8-7.7); NEUTROPHILS % (AUTO) 62.5 % (42.2-75.2); PLATELET COUNT (AUTO) 291 K/uL (140-450); RED BLOOD CELL COUNT(AUTO) 3.51 MIL/uL (4.20-5.40); RED CELL DISTRIBUTION WIDTH 13.6 % (11.6-13.7); WHITE BLOOD COUNT (AUTO) 7.6 K/uL (4.8-10.8)
--- NOTE | 2020-02-19 10:30 | NUR ---
PATIENT O2SAT ON ROOM NOW IS 84%. PLACED BACK TO 2L O2 VIA, O2SAT NOW IS 94%. WILL CONTINUE TO MONITOR.
--- NOTE | 2020-02-19 11:41 | NUR ---
PATIENT IS ROOM AIR NOW. O2SAT 97%. WILL CONTINUE TO MONITOR.
[2020-02-19 12:05] VITALS: BP 107/72
--- NOTE | 2020-02-19 12:33 | NUR ---
JIM GUARDADO AT [facility] STATED THAT THEY NEED TO GET APPROVAL FROM [facility] FOR PATIENT TO GO BACK TO THE [facility]. T[facility]ICA AWARE. WILL NOTIFY CASE MANAGEMENT Addendum: 02/19/20 at 1310 by Princess Nava Zacarias RN SUSIE MUSE MADE AWARE.
--- NOTE | 2020-02-19 13:16 | NUR ---
PATIENT IS AWAKE. NO SIGNS OF DISTRESS NOTED. BED IN LOW POSITION. ON ROOM AIR, O2SAT 96%, HR 83. WILL CONTINUE TO MONITOR.
--- NOTE | 2020-02-19 14:09 | NUR ---
ASSISTED PATIENT WITH EATING LUNCH. SHE WAS ABLE TO FINISH THE WHOLE CUP OF PUREE PASTA, HALF A CUP OF DICK SAUCE, AND 3 SPOONFUL OF APPLESAUCE. PATIENT TOLERATED WELL.
--- NOTE | 2020-02-19 17:02 | NUR ---
HUNG ROCEPHIN VIA IVPB. GIVEN MEDICATION EDUCATION. WILL CONTINUE TO MONITOR
--- NOTE | 2020-02-19 18:00 | NUR ---
DISCONTINUED IV SITE AND REMOVED ID BAND. WAS UNABLE TO GIVE DISCHARGE INSTRUCTIONS - PATIENT UNABLE TO COMPREHEND.
--- NOTE | 2020-02-19 18:04 | NUR ---
DISCHARGE PATIENT VIA WHEELCHAIR. TRANSPORT PROVIDED BY [facility]. PATIENT IS WEARING SURGICAL MASK. IS IN STABLE CONDITION
== END 2020-02-19 18:00 | DRG 177 ==
LOC: MED 15:18 → MMU 18:44 → MTU 02-18 14:30
PROVIDERS: ADMIT Family Medicine; ATTEND Family Medicine
DX: U07.1 COVID-19 (principal); J18.9 Pneumonia, unspecified organism; J96.01 Acute respiratory failure with hypoxia; G93.41 Metabolic encephalopathy; E44.1 Mild protein-calorie malnutrition; E87.6 Hypokalemia; E86.0 Dehydration; E83.42 Hypomagnesemia; I10 Essential (primary) hypertension; G30.9 Alzheimer's disease, unspecified; F02.80 Dementia in other diseases classified elsewhere, unspecified severity, without behavioral disturbance, psychotic disturbance, mood disturbance, and anxiety; K59.00 Constipation, unspecified; K21.9 Gastro-esophageal reflux disease without esophagitis; G40.909 Epilepsy, unspecified, not intractable, without status epilepticus; Z68.25 Body mass index [BMI] 25.0-25.9, adult; Z03.818 Encounter for observation for suspected exposure to other biological agents ruled out
CPT/HCPCS: 36415; 36600; 70450; 71045; 80048; 80053; 80305; 81003; 82150; 82550; 82728; 82803; 83036; 83605; 83615; 83690; 83735; 83880; 84100; 84436; 84439; 84443; 84479; 84484; 85025; 85379; 85384; 85610; 85651; 85730; 86140; 86886; 86900; 86901; 87040; 87081; 87086; 87420; 87804; 93005; 96365; 96366; 99291; J0696; J1644; J2001; J3475; J3480; J7030; J7060; U0003-CS

== ENCOUNTER 2023-03-10 12:09 | Emergency (ER) | payer OTHER, MEDICAID ==
[2023-03-10] VITALS (7 sets, daily range): BP systolic 102–135; BP diastolic 62–68; PULSE 68–73; RESP 16–18; TEMP 98.1; O2SAT 97–100
[~2023-03-10] VITALS: Ht 149.9 cm; Wt 45.4 kg
[~2023-03-10 12:09] MED LIST changes: +ACET-2619 PO; +ALBU0.0912 IH; +CALC-1015 PO; +HYDR-4004 PO; +IMO2 PO; +LEVE750T25 PO; +LEVO750T2 IV; +LORA10TA19 PO; +LOSA25TA32 PO; +MAGN400S60 PO; +MULT-2247 PO; +OMEP20EC11 PO; +ONDA4TAB PO; +PB97.2 PO; -PHEN60TA43; +PROM6.2591 PO; -VALS40TA3; +WHEA1POW PO; +[UNRECOGNIZED DRUG - CODE] NS; +[UNRECOGNIZED DRUG - CODE] PO
[2023-03-10] MEDS ORDERED: HALOPERIDOL IM 5 MG/ML VIAL IM ONE (12:50)
[2023-03-10 13:51] LABS: BASOPHILS % (AUTO) 0.3 % (0.0-2.0); EOSINOPHILS % (AUTO) 0.6 % (0.0-4.0); HEMATOCRIT 41.9 % (36-48); HEMOGLOBIN 14.2 g/dL (12.0-16.0); LYMPHOCYTES # (AUTO) 2.2 K/uL (2.5-16.5); LYMPHOCYTES % (AUTO) 26.8 % (20.5-51.1); MEAN CORPUSCULAR HEMOGLOBIN 33 pg (27-31); MEAN CORPUSCULAR HGB CONC 34 g/dL (33-37); MEAN CORPUSCULAR VOLUME 96.9 fL (80-94); MONOCYTES # (AUTO) 0.7 K/uL (0.8-1.0); MONOCYTES % (AUTO) 8.5 % (1.7-9.3); NEUTROPHILS # (AUTO) 5.3 K/uL (1.8-7.7); NEUTROPHILS % (AUTO) 63.8 % (42.2-75.2); PLATELET COUNT (AUTO) 285 K/uL (140-450); RED BLOOD CELL COUNT(AUTO) 4.32 MIL/uL (4.20-5.40); RED CELL DISTRIBUTION WIDTH 13.2 % (11.6-13.7); WHITE BLOOD COUNT (AUTO) 8.2 K/uL (4.8-10.8)
[2023-03-10] MEDS ORDERED: MIDAZOLAM 2 MG/2 ML VIAL IM ONE ×2 (14:15→16:10)
[2023-03-10 14:24] LABS: INR 0.95 (0.8-1.2); PARTIAL THROMBOPLASTIN TIME 26.5 secs (22-35.6)
[2023-03-10 14:32] LABS: ALANINE AMINOTRANSFERASE 21 U/L (12-78); ALBUMIN 3.1 g/dL (3.4-5.0); ALKALINE PHOSPHATASE 116 U/L (50-136); ANION GAP 9.3 (8-16); ASPARTATE AMINOTRANSFERASE 28 U/L (15-37); CALCIUM 9.2 mg/dL (8.5-10.1); CARBON DIOXIDE 32.8 mmol/L (21-32); CHLORIDE 103 mmol/L (98-107); CREATININE 0.7 mg/dL (0.6-1.3); GLUCOSE 103 mg/dL (74-106); POTASSIUM 3.1 mmol/L (3.5-5.1); SODIUM SERUM 142 mmol/L (136-145); TOTAL BILIRUBIN 0.3 mg/dL (0.0-1.0); TOTAL PROTEIN, SERUM 7.8 g/dL (6.4-8.2); UREA NITROGEN, BLOOD 24 mg/dL (7-18)
[2023-03-10] MEDS ORDERED: KETAMINE HCL 50 mg/5 mL UD SYRINGE IV ONE (16:20)
== END 2023-03-10 22:29 | disposition home or self-care (01) ==
LOC: MED 12:09
DX: S00.81XA Abrasion of other part of head, initial encounter (principal); F79 Unspecified intellectual disabilities; I10 Essential (primary) hypertension; R56.9 Unspecified convulsions; Z79.899 Other long term (current) drug therapy; W19.XXXA Unspecified fall, initial encounter; Y93.89 Activity, other specified; Y92.89 Other specified places as the place of occurrence of the external cause; Y99.8 Other external cause status
CPT/HCPCS: 36415; 70450; 72125; 80053; 84484; 85025; 85610; 85730; 96372; 99285; J1630; J2250